=== PATIENT | female | born 1940 | race Caucasian/White ===

== ENCOUNTER 2021-01-06 21:16 | Emergency (ER) | payer OTHER, SELFPAY ==
--- NOTE | ~2021-01-06 | XR_ITS ---
EXAMINATION: XR foot LT min 3V EXAM DATE: 01/06/2021 21:57 INDICATION: Fall Today, Pain Throughout Foot Hx Strokes. TECHNIQUE: Left foot dorsoplantar, lateral and oblique projections obtained and reviewed. There is n o prior study for comparison. FINDINGS: Bones are osteopenic. There is acute closed posttraumatic minimally displaced fracture at t he neck of the left 2nd metatarsal bone. Mild polyarticular primary osteoarthritis. Small calcaneal s purs. There are arterial calcifications, arteriosclerosis. Probable old 5th metatarsal fracture. IMPRESSION: 1. Acute left 2nd metatarsal neck fracture. 2. Osteoarthritis and osteopenia. Reviewed, dictated and finalized at location A. CARDIAC CATH
--- NOTE | ~2021-01-06 | XR_ITS ---
EXAMINATION: XR wrist LT min 3V EXAM DATE: 01/06/2021 21:58 INDICATION: Left wrist pain. Injury, initial encounter. TECHNIQUE: Left wrist frontal, frontal with ulnar deviation, oblique and lateral projections obtained and reviewed. There is no prior study for comparison. FINDINGS: There is a radial styloid fracture which appears most likely chronic, however can't exclude superimposed acute closed posttraumatic nondisplaced fracture. Check for radial styloid probably ten derness. There is an old 5th metacarpal fracture. Bones are osteopenic. Carpal bones are unremarkable . IMPRESSION: 1. Left radial styloid chronic or acute on chronic fracture. 2. Chronic findings. Reviewed, dictated and finalized at location A. 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
[2021-01-06 21:26] VITALS: BP 180/51; PULSE 91; RESP 18; TEMP 36.3; O2SAT 99
[2021-01-06] MEDS: IBUPROFEN 600 MG TABLET PO (22:23)
--- NOTE | 2021-01-07 00:04 | ED.GENADULT ---
HPI - General Adult General Chief complaint: Fall Stated complaint: fall left hand left foot pain Time Seen by Provider: 01/06/21 21:38 History of Present Illness HPI narrative: Patient is a 80-year-old female who presents the emergency department chief complaint of left foot and left wrist pain. Patient reports she was walking hit a crack and fell. Patient denies striking her head denies loss of consciousness reports she has pain in the left wrist and reports left midfoot. Patient states pain is worse with movement and better with rest. Review of Systems Review of Systems: A 10 system review of systems was completed on the patient and is negative except for what is stated in the HPI. Nursing and ancillary documentation was reviewed. Exam Narrative: GENERAL: Well-appearing, well-nourished, and in no acute distress. HEAD: Normocephalic, atraumatic. EYES: PERRLA and EOMI. ENT: Nares clear, no rhinorrhea or epistaxis. Mucous membranes moist. NECK: Supple. CHEST: Clear to auscultation. No respiratory distress. HEART: Regular rate and rhythm. No murmur heard. Normal peripheral pulses. ABDOMEN: Soft, nontender, nondistended, normal active bowel sounds. EXTREMITIES: Normal range of motion. No edema. There is tenderness to palpation in the midfoot of the left foot at the second metatarsal. There is tenderness to palpation of the distal radius SKIN: Warm, dry, no rash. NEURO: No focal deficits. Alert and oriented x3. PSYCH: Normal mood and affect. Course Vital Signs Vital signs: Vital Signs Temperature 36.3 C L 01/06/21 21:26 Pulse Rate 91 01/06/21 21:26 Respiratory Rate 18 01/06/21 21:26 Blood Pressure 180/51 H 01/06/21 21:26 Pulse Oximetry 99 01/06/21 21:26 Temperature 36.3 C L 01/06/21 21:26 Pulse Rate 91 01/06/21 21:26 Respiratory Rate 18 01/06/21 21:26 Blood Pressure 180/51 H 01/06/21 21:26 Pulse Oximetry 99 01/06/21 21:26 Medical Decision Making Vital Signs Vital Signs: Vital Signs Temperature 36.3 C L 01/06/21 21:26 Pulse Rate 91 01/06/21 21:26 Respiratory Rate 18 01/06/21 21:26 Blood Pressure 180/51 H 01/06/21 21:26 Pulse Oximetry 99 01/06/21 21:26 Temperature 36.3 C L 01/06/21 21:26 Pulse Rate 91 01/06/21 21:26 Respiratory Rate 18 01/06/21 21:26 Blood Pressure 180/51 H 01/06/21 21:26 Pulse Oximetry 99 01/06/21 21:26 Discharge Plan Discharge Clinical Impression: Closed nondisplaced fracture of styloid process of left radius, Closed fracture of second metatarsal bone of left foot Patient Disposition: Home, Self-Care Condition: Stable Instructions: Antibiotic Form, Wrist Fracture in Adults (ED), Foot Fracture in Adults (ED), Splint Care (ED) Prescriptions: New hydrocodone-acetaminophen 5-325 mg tablet 1 tablet PO Q6H PRN (Reason: pain) 3 Days Qty: 12 RF: 0 Follow-up/Referrals: Fred Valdez MD [Physician] - Laureano Mcallister DO [Primary Care Provider] - Time of Disposition: 00:10
[2021-01-07 00:27] VITALS: BP 111/70; PULSE 81; RESP 20; O2SAT 100
== END 2021-01-07 00:29 | disposition home or self-care (01) ==
PROVIDERS: Emergency Provider Emergency Medicine; PCP Internal Medicine
DX: S52.515A Nondisplaced fracture of left radial styloid process, initial encounter for closed fracture (principal); S92.325A Nondisplaced fracture of second metatarsal bone, left foot, initial encounter for closed fracture; W01.0XXA Fall on same level from slipping, tripping and stumbling without subsequent striking against object, initial encounter
CPT/HCPCS: 73110; 73630; 99284; A9270

== ENCOUNTER 2022-09-15 00:59 | Day surgery (SDC) | payer OTHER, SELFPAY ==
--- NOTE | 2022-09-12 15:46 | PC.NURSE ---
Report to the Outpatient Waiting Room, entrance under the green pavilion located off [facility], at time __1100 on date _09/15/22 . Planned Procedure Time: __1200 . Time changes happen often and if your time is changed the preop area will call you the afternoon before. - You and your visitor will be asked to self-screen and do not enter if you have any COVID symptoms. - A mask is optional within the hospital at this time. LIGHT BREAKFAST - Children will be allowed to drink immediately following surgery. If applicable, please bring a bottle or sippy cup to assist with drinking. Juice, water, soda, and popsicles are readily available. For infants on formula, please bring formula the day of surgery. Pacifiers are allowed. Take the following medications with a SIP of water the morning of surgery: ALL ROUTINE MORNING MEDICATIONS DO NOT STOP ANY OF YOUR OTHER PRESCRIPTION MEDICATIONS PRIOR TO SURGERY ?EXCEPT THE FOLLOWING Medications to discontinue per physician NONE Date to take last dose Please no make-up, nail mont[place]gr[place], hairspray, perfume, deodorant, or body powder the day of surgery. No jewelry (including any body piercings) or valuables the day of surgery, leave them at home. Please take a shower or bath the night before, or the morning of, surgery with an antibacterial soap. Wear comfortable, loose fitting clothing. Children are encouraged to wear pajamas. - Jewelry must be removed prior to entering the operating room. Rings and piercings that are not removed may be cut off. - The hospital will not accept responsibility for valuables. - Please leave all valuables, including medications, at home the day of surger YOU MAY DRIVE YOURSELF HOME Follow any additional instructions given to you from your surgeon. If you or anyone in your household have experienced Covid symptoms in the past week, please notify your surgeon or the nurse liaison at the phone number below for possible testing. Telephone instructions given to _PATIENT AND SON YOSSI and asked if any additional questions and then verbalized understanding. Patient advised to call surgeon office or pre surgery nurse liaison [phone] if any additional questions.
[2022-09-15] VITALS (14 sets, daily range): BP systolic 127–176; BP diastolic 57–86; PULSE 75–89; RESP 16–20; TEMP 36.1; O2SAT 94–100; BMI 24.1
--- NOTE | 2022-09-15 08:32 | WPDHPUPDATE1 ---
History and Physical Update Update Date/Time: 09/15/22 08:32 History and Physical has been reviewed, including an updated exam of the patient. There are NO changes in the patient's condition. Risks, benefits, and alternatives have been discussed and questions answered. Patient agrees to proceed with procedure.
[2022-09-15] MEDS: LIDO 1%/EPINEPHRINE 1:100,000 20 ML VIAL 15 ML INFILTRATE (12:26)
--- NOTE | 2022-09-15 12:56 | W.PM.PROC2 ---
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 She was taken to the operating room placed supine on the operating table. A time-out was held and confirmed. The face was prepped and draped in usual fashion. She was comfortably situated. The area was carefully marked for the incision and the area fairly widely anesthetized with 1% lidocaine with epinephrine to include the nose and the left upper lip and left cheek. The specimen was taken with a 15. Blade through full-thickness of skin extending more deeply in the nasal labial fold region. The most superior aspect along the upper nasal labial groove was marked with a suture for 12 o'clock. The specimen was sent to pathology. The pathologist revealed that this was an infiltrating nodular basal cell carcinoma and he found the margins were free. He thought that the deep margin on the 12:00 o'clock aspect was closest to the margin. We undertook elevation of additional tissue from that area using a 15 blade to lift a 1 mm thick piece of fascia, muscle and fat. The subcutaneous tissue was identified and from the musculature and elevated off the deeper fascia. This covered approximately 50% of the base extending from roughly the midline the to the 9:00 a.m. half of the base. This piece of tissue was sent for permanent section but was marked on its superficial surface with black ink. Estimated Blood Loss 10 Drains No Packing No Pathology Yes Complications No immediate complications Condition Stable Disposition Same day
--- NOTE | 2022-09-15 13:08 | SUR.PHASEII ---
1300 - pt's incision site bleeding. dr. weiss aware. pt resting in charge, holding pressure and instructed by dr. weiss. son in room with pt
== END 2022-09-15 13:45 | disposition home or self-care (01) ==
PROVIDERS: Visit Provider Plastic Surgery
PROC: (CPT 14060; principal; 2022-09-15 10:30)
DX: C44.311 Basal cell carcinoma of skin of nose (principal); J45.909 Unspecified asthma, uncomplicated; Z79.82 Long term (current) use of aspirin; Z79.02 Long term (current) use of antithrombotics/antiplatelets; Z86.73 Personal history of transient ischemic attack (TIA), and cerebral infarction without residual deficits
CPT/HCPCS: 14060; 88304; 88305; 88331; A9270

== ENCOUNTER 2023-06-18 12:06 | Inpatient (IN) | payer OTHER, SELFPAY ==
[2023-06-18] VITALS (9 sets, daily range): BP systolic 100–144; BP diastolic 49–65; PULSE 80–99; RESP 16–22; TEMP 35.6–36.6; O2SAT 93–100; BMI 24.7
--- NOTE | ~2023-06-18 | XR_ITS ---
EXAMINATION: XR chest 1V portable DATE: 06/18/2023 14:13 INDICATION: Fall. TECHNIQUE: A single frontal view of the chest was obtained. COMPARISON: Chest 2 views 11/12/2018 FINDINGS: There is mild atelectasis in the lower lung zones. No pleural effusion or pneumothorax. The heart size is normal. There are old healed bilateral rib fractures. IMPRESSION: 1. Mild atelectasis in the lower lung zones. Reviewed, dictated and finalized at location E.
--- NOTE | ~2023-06-18 | CT_ITS ---
EXAMINATION: CT brain wo con DATE: 06/18/2023 14:51 INDICATION: Fall. TECHNIQUE: Computed tomography (CT) of the head was performed without intravenous contrast. The mA wa s adjusted according to patient size. Iterative reconstruction technique was employed. The dose-lengt h product was 605.33 mGy-cm. COMPARISON: None FINDINGS: There is an old infarct involving the right basal ganglia, posterior limb right internal ca psule, and right posterior velazquez radiata. There is no intracranial hemorrhage, acute infarction, or abnormal intracranial mass lesion. The ventricles are normal in size. The mastoid air cells are galo l. The paranasal sinuses are clear. There are likely changes of ocular lens replacement surgeries. IMPRESSION: 1. Old infarct involving the right basal ganglia, posterior limb right internal capsule, and right po sterior velazquez radiata. Reviewed, dictated and finalized at location E. IMPRESSION: 1. Old infarct involving the right basal ganglia, posterior limb right internal capsule, and right posterior velazquez radiata.
--- NOTE | ~2023-06-18 | XR_ITS ---
XR pelvis 1-2V 06/18/2023 12:58 Indication: Pelvic pain after fall Procedure: AP pelvis Comparison: No prior studies for comparison. Findings: There are mildly displaced fractures of the left superior and inferior pubic rami. Osteopen ia. There is osteoarthritis of the hips. There is lower lumbar spondylosis. There is discontinuity of the right inferior sacral foramen. Cannot exclude sacral fracture. Impression: 1: Mildly displaced left superior and inferior pubic rami fractures. 2: Possible right sacral fracture. Consider correlation with MRI. Reviewed, dictated and finalized at location A. Impression: 1: Mildly displaced left superior and inferior pubic rami fractures. 2: Possible right sacral fracture. Consider correlation with MRI.
[2023-06-18 13:40] LABS: Basophils Absolute Auto 0.1 K/mm3 (0.0-0.1); Basophils Percent Auto 0.5 % (0.2-1.2); Eosinophils Absolute Auto 0.1 K/mm3 (0-0.3); Eosinophils Percent Auto 0.6 % (0-4.4); Hematocrit 39.3 % (37.0-47.0); Hemoglobin 12.3 g/dL (12.0-15.0); Immature Granulocyte Percent A 0.7 % (0-0.5); Lymphocytes Absolute Auto 1.17 K/mm3 (0.9-3.2); Lymphocytes Percent Auto 7.8 % (18.3-44.2); Mean Corpuscular HGB Conc 31.3 g/dl (32-36); Mean Corpuscular Hemoglobin 30.3 pg (26-34); Mean Corpuscular Volume 96.8 fl (80-100); Monocytes Absolute Auto 0.9 K/mm3 (0.1-0.6); Neutrophils Absolute Auto 12.7 K/mm3 (1.3-6.7); Neutrophils Percent Auto 84.4 % (45.5-73.1); Platelet Count Result 243 k/mm3 (150-375); Red Blood Count 4.06 M/mm3 (4.2-5.4); Red Cell Distribution Width 14.3 % (11.5-14.5); White Blood Count 15.1 K/mm3 (4.5-10.0)
[2023-06-18] MEDS: HYDROcodone/acetaminophen (*CRX) 5-325 MG TABLET 1 TAB PO (13:45)
[2023-06-18 13:56] LABS: Anion Gap 6 mmol/L (4-12); Blood Urea Nitrogen 26 mg/dL (7-17); Calcium 9.1 mg/dL (8.4-10.2); Carbon Dioxide 28 mmol/L (22-30); Chloride 107 mmol/L (98-107); Estimated Glomerular Filt Rate > 60; Glucose 201 mg/dL (65-110); Sodium 141 mmol/L (137-145)
--- NOTE | 2023-06-18 14:00 | ECG_ITS ---
SEE SCANNED COPY FOR CONFIRMED REPORT MTDD
[2023-06-18 14:31] LABS: Troponin I < 0.012 ng/mL (0.000-0.034)
--- NOTE | 2023-06-18 14:57 | ED.FALL ---
HPI - Fall General Chief Complaint: Fall Stated Complaint: fall Time Seen by Provider: 06/18/23 12:47 History of Present Illness HPI Narrative: Patient presents here after head she fell, she states she has been feeling stopped up because she ran out her Flonase at home and because of this her head feels cloudy, she landed on her bottom and now has pain to her left bottom a, so much so she is unable to stand up without severe pain. No focal numbness or weakness. Did nothit her head. she does have some discomfort to the right shoulder. Related Data Home Medications Medication Instructions Recorded Confirmed aspirin 81 mg chewable tablet 81 mg PO HS 08/23/19 06/18/23 clopidogrel 75 mg tablet 75 mg PO HS 06/18/23 06/18/23 hydrocodone 5 mg-acetaminophen 325 1 tablet PO Q6H PRN Pain 06/18/23 06/18/23 mg tablet pravastatin 40 mg tablet 40 mg PO DAILY 06/18/23 06/18/23 Allergies Allergy/AdvReac Type Severity Reaction Status Date / Time No Known Allergies Allergy Verified 06/18/23 13:05 Review of Systems Review of Systems: All systems reviewed & are unremarkable except as noted in HPI and below PMFSH Family History Family History Father Family history of cardiovascular disease Mother Family history of lung cancer Social History Social History Smoking packs per day: 0.5 Smoking cigarettes per day: 10.0 Years smoked: 20 Smoking pack-years: 10.00 Smoking status: Former smoker Tobacco type: cigarettes Second hand tobacco smoke exposure: Yes Smoking end date: 02/28/84 Alcohol intake: never Drinks per week: 2 Substance use: never Substance use type: does not use Do You Feel Safe in your Home?: Yes Lack of Transportation: No Lack of Food: Never True Current Housing: I Have Housing Concerned About Future Housing: No Difficulty Paying Gas/Electric Bills: No Difficulty Paying for Meds: No Currently Unemployed: No Education: Decline to Answer Difficulty w/ Childcare or Family Care: No Living arrangements: with family Spiritual care concerns: No Exam Narrative: EXAMINATION OF ORGAN SYSTEMS/BODY AREAS: Constitutional: Vital signs per nursing GENERAL: Appears uncomfortable in bed HEAD: Normal with no signs of head trauma. EYES: EOMI, conjunctiva normal ENT: Hearing grossly intact LUNGS: Nonlabored breathing. HEART: [Regular rate and rhythm] ABD: [Soft], [nontender to palpation] EXT: tenderness to left hip/ pelvis, multiple bruises bilateral arms, bruising to right scapula SKIN: bruising as per above NEURO: [Alert and oriented x 3. No gross focal sensory or strength deficits.] PSYCH: Normal affect Course Vital Signs Vital signs: Vital Signs Temperature 97.8 F 06/18/23 12:17 Pulse Rate 99 06/18/23 12:17 Respiratory Rate 18 06/18/23 12:17 Blood Pressure 121/60 06/18/23 12:17 Pulse Oximetry 95 06/18/23 12:17 Oxygen Delivery Room Air 06/18/23 12:17 Temperature 96.1 F L 06/18/23 16:52 Pulse Rate 86 06/18/23 16:52 Respiratory Rate 16 06/18/23 16:52 Blood Pressure 118/61 06/18/23 16:52 Pulse Oximetry 98 06/18/23 17:17 Oxygen Delivery Room Air 06/18/23 17:17 MDM - Fall MDM Narrative Medical decision making narrative: 1) Differential diagnosis: fractures, cardiac syncope, intracranial abnormality 2) Comorbidities: CAD, hypertension 3) External notes reviewed: PCP notes 4) History sources independently obtained from: children at bedside 5) Discussion of management with: Orthopedics, hospitalist 6) Independent interpretation of: pelvis x-ray: left-sided pubic rami fracture EKG 1421 on my independent interpretation showing normal sinus rhythm, left axis deviation, AL interval 183, QRS 84, QTC 403, no ST elevations or depressions concerning for acute ischemia. chest x-ray, no
--- NOTE | 2023-06-18 16:40 | ADMGEN ---
This patient, Jeremias Perla, was admitted to [facility] Surg Room 324-01. Patient/family oriented to hospital policies and general routines including ID bracelet, bed and alarms, visiting hours, pain management, procedures, bathroom and other care routines, personal items, smoking policy, room service/diet, and visiting hours. Information on how to activate the Rapid Response Team has been discussed. Patient/Family are encouraged to report perceived risks to care and to ask questions if they do not understand what they are told or what they should do.
--- NOTE | 2023-06-18 20:25 | PM.IMHP ---
H&P: HPI History of Present Illness Date/Time: 06/18/23 23:52 Chief Complaint: Fall Narrative: 82 y/o F presents here with left buttock and right shoulder pain s/p fall with PMH of asthma, HLD, CVA (residual left hemiplegia), HTN, and basal cell carcinoma (left nare, s/p excision). Surgical history - pilonidal cyst removal, cataract removal. Patient presents here for further evaluation of left-sided buttock pain and right shoulder pain post mechanical ground level fall. Patient reports recent congestion and ear fullness bilaterally, has been taking Flonase. Patient reports that she was walking in the kitchen when her foot turned under and she fell. Reports no LOC, and no head strike. Patient landed on her bottom, immediately had pain to her left buttock, some pain to her right shoulder, and unable to ambulate due to severity of pain. Denies any new lower extremity numbness or weakness. Does have history of residual left hemiplegia and nerve pain to her LUE/LLE/L face secondary to a CVA, currently uses a cane. Currently lives at home, youngest son recently moved in with her and has been helping her occasionally. No difficulty with urination. Initial VS at presentation: 97.8? F, HR 99, RR 18, 121/60, and 95% on RA. ED workup showed: WBC 15.1, no anemia, creatinine 0.8 and GFR >60, glucose 201, initial troponin negative. Head CT showed old infarct involving the right basal ganglia, posterior limb right internal capsule, and right posterior coronal radiata. CXR showed mild atelectasis in the lower lung zones. Pelvic XR showed a mildly displaced left superior and inferior pubic rami fractures. Possible right sacral fracture. 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 History of completed stroke (01/2011) Hx of skin cancer, basal cell L nare, s/p excision Left hemiplegia s/p CVA Mixed hyperlipidemia Rhinitis, chronic Surgical History Surgical History History of bilateral cataract extraction History of surgical removal of pilonidal cyst Family History Family History Father Family history of cardiovascular disease Mother Family history of lung cancer Social History Social History Smoking packs per day: 0.5 Smoking cigarettes per day: 10.0 Years smoked: 20 Smoking pack-years: 10.00 Smoking status: Former smoker Tobacco type: cigarettes Second hand tobacco smoke exposure: Yes Smoking end date: 02/28/84 Alcohol intake: never Drinks per week: 2 Substance use: never Substance use type: does not use Do You Feel Safe in your Home?: Yes Lack of Transportation: No Lack of Food: Never True Current Housing: I Have Housing Concerned About Future Housing: No Difficulty Paying Gas/Electric Bills: No Difficulty Paying for Meds: No Currently Unemployed: No Education: Decline to Answer Difficulty w/ Childcare or Family Care: No Living arrangements: with family Spiritual care concerns: No Meds Home Medications and Allergies Home Medications Medication Instructions Recorded Confirmed Type aspirin 81 mg chewable tablet 81 mg PO HS 08/23/19 06/18/23 History lisinopril 20 mg tablet 20 mg PO DAILY #90 tabs 02/01/23 06/18/23 Rx clopidogrel 75 mg tablet 75 mg PO HS 06/18/23 06/18/23 History hydrocodone 5 mg-acetaminophen 325 1 tablet PO Q6H PRN Pain 06/18/23 06/18/23 History mg tablet pravastatin 40 mg tablet 40 mg PO DAILY 06/18/23 06/18/23 History Allergies Allergy/AdvReac Type Severity Reaction Status Date / Time No Known
[2023-06-18] MEDS: oxyCODONE HCL (*CRX) 2.5 MG TAB IR PO (20:52)
[2023-06-18] MEDS: CLOPIDOGREL BISULFATE 75 MG TABLET PO (20:52)
[2023-06-18] MEDS: ASPIRIN 81 MG CHEWABLE TABLET PO (20:53)
[2023-06-18] MEDS: LACTATED RINGERS 1,000 ML 75 ML IV CONT (20:56)
[2023-06-19 05:02] VITALS: BP 123/51; PULSE 93; RESP 17; TEMP 36.4; O2SAT 97
[2023-06-19 06:14] LABS: Basophils Percent Auto 0.4 % (0.2-1.2); Hematocrit 31.1 % (37.0-47.0); Hemoglobin 9.8 g/dL (12.0-15.0); Immature Granulocyte Absolute 0.04 K/mm3 (0.00-0.031); Immature Granulocyte Percent A 0.5 % (0-0.5); Lymphocytes Absolute Auto 1.16 K/mm3 (0.9-3.2); Lymphocytes Percent Auto 15.4 % (18.3-44.2); Mean Corpuscular HGB Conc 31.5 g/dl (32-36); Mean Corpuscular Hemoglobin 30.1 pg (26-34); Mean Corpuscular Volume 95.4 fl (80-100); Mean Platelet Volume 10.4 fl (7.4-10.4); Monocytes Absolute Auto 0.8 K/mm3 (0.1-0.6); Monocytes Percent Auto 10.1 % (2.6-8.5); Neutrophils Absolute Auto 5.5 K/mm3 (1.3-6.7); Neutrophils Percent Auto 73.6 % (45.5-73.1); Platelet Count Result 159 k/mm3 (150-375); Red Blood Count 3.26 M/mm3 (4.2-5.4); Red Cell Distribution Width 14.3 % (11.5-14.5); White Blood Count 7.5 K/mm3 (4.5-10.0)
[2023-06-19 06:25] LABS: Anion Gap 3 mmol/L (4-12); Blood Urea Nitrogen 29 mg/dL (7-17); Calcium 8.6 mg/dL (8.4-10.2); Carbon Dioxide 28 mmol/L (22-30); Chloride 106 mmol/L (98-107); Estimated CRCL calculation 45 ml/min; Estimated Glomerular Filt Rate > 60; Glucose 105 mg/dL (65-110); Potassium 4.4 mmol/L (3.4-5.0); Sodium 137 mmol/L (137-145)
[2023-06-19 08:00] VITALS: PULSE 93; RESP 17; O2SAT 97
--- NOTE | 2023-06-19 09:06 | PM.CNOR ---
Assessment and Plan Assessment and plan (1) Closed fracture of pubic ramus: Code(s): S32.599A - Other specified fracture of unspecified pubis, initial encounter for closed fracture <CELESTE Gomez - Last Filed: 06/19/23 15:09> Status: Acute <CELESTE Gomez - Last Filed: 06/19/23 15:09> Assessment and Plan: Mildly displaced superior and inferior left pubic rami fracture. Possible sacral fracture. Patient may be treated conservatively. I recommend she be discharged to SNF/Rehab. 6-8 weeks for initial healing. Weight bearing as tolerated with a walker. May begin PT/OT. She will need to follow up in the office in 4-6 weeks with xrays. <CELESTE Gomez - Last Filed: 06/19/23 15:09> Assessment and Plan: Patient seen and examined. Discussed above care plan. Radiographic images reviewed personally. Three-dimensional imaging not required. Agree with conservative care plan. No pain with pelvic compression. She may weight bear as tolerated. Anticipate early difficulty with weight-bearing which should improve weekly. She may be able to [facility] sooner than 6 weeks. <Geovany Solorzano MD - Last Filed: 06/19/23 16:54> History of Present Illness HPI Consult date: 06/19/23 <CELESTE Gomez - Last Filed: 06/19/23 15:09> 06/19/23 <Geovany Solorzano MD - Last Filed: 06/19/23 16:54> Chief complaint: Fall with Pelvis FX <CELESTE Gomez - Last Filed: 06/19/23 15:09> Narrative: Patient fell from standing height. She does not know how she fell. Pain in her lower back. No other complaints. No numbness or tingling or other associated symptoms. <CELESTE Gomez - Last Filed: 06/19/23 15:09> Review of Systems Review of Systems: History of stroke affecting the left side. 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 History of completed stroke (01/2011) Hx of skin cancer, basal cell L nare, s/p excision Left hemiplegia s/p CVA Mixed hyperlipidemia Rhinitis, chronic <CELESTE Gomez - Last Filed: 06/19/23 15:09> Surgical History Surgical History: Surgical History History of bilateral cataract extraction History of surgical removal of pilonidal cyst <CELESTE Gomez - Last Filed: 06/19/23 15:09> Family History Family History: Family History Father Family history of cardiovascular disease Mother Family history of lung cancer <CELESTE Gomez - Last Filed: 06/19/23 15:09> Social History Social History: Social History Smoking packs per day: 0.5 Smoking cigarettes per day: 10.0 Years smoked: 20 Smoking pack-years: 10.00 Smoking status: Former smoker Tobacco type: cigarettes Second hand tobacco smoke exposure: Yes Smoking end date: 02/28/84 Alcohol intake: never Drinks per week: 2 Substance use: never Substance use type: does not use Do You Feel Safe in your Home?: Yes Lack of Transportation: No Lack of Food: Never True Current Housing: I Have Housing Concerned About Future Housing: No Difficulty Paying Gas/Electric Bills: No Difficulty Paying for Meds: No Currently Unemployed: No Education: Decline to Answer Difficulty w/ Childcare or Family Care: No Living arrangements: with family Spiritual care concerns: No <CELESTE Gomez - Last Filed: 06/19/23 1
[2023-06-19] MEDS: PRAVASTATIN SODIUM 20 MG TABLET 40 MG PO (09:16)
[2023-06-19] MEDS: lisinopriL 20 MG TABLET PO (09:18)
[2023-06-19] MEDS: PSYLLIUM POWDER PACKET 1 PACKET PO (09:18)
--- NOTE | 2023-06-19 09:29 | PM.IMPN ---
Progress Note: A&P Assessment and Plan (1) Closed fracture of pubic ramus: Code(s): S32.599A - Other specified fracture of unspecified pubis, initial encounter for closed fracture Status: Acute Assessment and Plan: 06/18/23: - XR pelvis 1: Mildly displaced left superior and inferior pubic rami fractures. 2:?Possible right sacral fracture. Consider correlation with MRI. - ortho consulted, awaiting formal recs. case discussed with ED provider, reported case was likely non-operative and would like patient admitted for PT/OT - SCDs - resume diet and continuing daily ASA and Plavix, no immediate surgical intervention indicated - pain management: Tyl Q6H, morphine 2 mg, oxycodone 2.5 mg - zofran PRN for nausea - monitor labs in AM - CBC and BMP - adding UA given mild elevation in WBC - bowel regimen: docusate/senna prn and Metamucil daily - maintenance fluids: LR 75 mL/hr x1L 06/19/23: Continue pain control Continue PT and OT Orthopedic evaluation ordered (2) Essential (primary) hypertension: Code(s): I10 - Essential (primary) hypertension Status: Acute Assessment and Plan: 06/18/23: - chronic, currently 144/65 - continue home medications: Lisinopril 20 mg daily - monitor 06/19/23: Blood pressures ranging 123/51 to 144/65 No change to current treatment plan Time Spent With Patient Time with patient: Greater than 35 minutes Subjective Date/time seen: 06/19/23 09:29 Interval history: This is an 82-year-old female who presented to the hospital on 06/18/2023 for evaluation after fall. 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 Pelvic x-ray showed a mildly displaced left superior and inferior pubic rami fracture and possible right sacral fracture. Initial labs showed a white blood cell count of 15.1 troponins negative, otherwise unremarkable. Ortho consulted. Patient is likely not a surgical candidate and will be treated medically. She will need PT and OT. On examination today patient is alert and oriented x3, lying in the bed. Patient endorses bilateral hip and low back pain. Patient denies any fever, chills, nausea, vomiting, diarrhea, abdominal pain chest pain, shortness a breath. Labs today reveal hemoglobin of 9.8 otherwise unremarkable. PT and OT will evaluate patient today. Continue to work on pain control. Case management working on outpatient rehab needs. Review of Systems Review of Systems: All systems reviewed & are unremarkable except as noted in HPI and below Constitutional: Constitutional: Reports as per HPI and Reports no additional constitutional complaints Eyes: Eyes: Reports as per HPI and Reports no additional eye complaints ENT: Reports system reviewed and no additional complaints, except as documented and Reports as per HPI Cardiovascular: Cardiovascular: Reports as per HPI and Reports no additional cardiovascular complaints Respiratory: Respiratory: Reports as per HPI and Reports no additional respiratory complaints Gastrointestinal: Gastrointestinal: Reports as per HPI and Reports no additional gastrointestinal complaints Genitourinary: Genitourinary: Reports no additional female genitourinary complaints and Reports as per HPI Musculoskeletal: Musculoskeletal: Reports no additional musculoskeletal complaints and Reports as per HPI Integumentary/Breasts: Skin/Breast: Reports system reviewed and no additional complaints, except as docu and Reports as per HPI Neurologic: Reports system reviewed and no additional complaints, except as documented and Reports as per HPI Psychiatric: Psychiatric: Reports no additional psychiatric complaints and Reports as per HPI Exam Narrative: General: In no acute distress, well nourished Head: atraumatic, no encephalopathy
--- NOTE | 2023-06-19 13:05 | PCPTNOTE ---
Attempted PT evaluation, waiting on ortho consult/weight bearing recommendations prior to PT evaluation. RN aware. Will follow.
[2023-06-19 14:00] VITALS: BP 111/60; PULSE 96; RESP 20; TEMP 36.5; O2SAT 100
[2023-06-19] MEDS: ACETAMINOPHEN 325 MG TABLET 650 MG PO (16:05)
[2023-06-19 20:03] VITALS: BP 159/67; PULSE 100; RESP 18; TEMP 36.1; O2SAT 96
[2023-06-19] MEDS: CLOPIDOGREL BISULFATE 75 MG TABLET PO (20:23)
[2023-06-19] MEDS: FLUTICASONE PROPIONATE 0.05% NA SPR 16 GM BTL (*BKC) 1 SPRAY NASAL (20:23)
[2023-06-19] MEDS: ASPIRIN 81 MG CHEWABLE TABLET PO (20:23)
[2023-06-19] MEDS: oxyCODONE HCL (*CRX) 2.5 MG TAB IR PO (20:32)
[2023-06-20] MEDS: ACETAMINOPHEN 325 MG TABLET 650 MG PO ×2 (02:49→20:13)
[2023-06-20 05:38] VITALS: BP 137/57; PULSE 96; RESP 17; TEMP 36.6; O2SAT 95
[2023-06-20 08:00] VITALS: PULSE 86; RESP 20; O2SAT 96
[2023-06-20] MEDS: FLUTICASONE PROPIONATE 0.05% NA SPR 16 GM BTL (*BKC) 1 SPRAY NASAL ×2 (09:07→20:14)
[2023-06-20] MEDS: PRAVASTATIN SODIUM 20 MG TABLET 40 MG PO (09:07)
[2023-06-20] MEDS: lisinopriL 20 MG TABLET PO (09:07)
[2023-06-20] MEDS: PSYLLIUM POWDER PACKET 1 PACKET PO (09:09)
--- NOTE | 2023-06-20 10:20 | PM.PNORT ---
Progress Note: A&P Assessment and Plan (1) Closed fracture of pubic ramus: Code(s): S32.599A - Other specified fracture of unspecified pubis, initial encounter for closed fracture Status: Acute Assessment and Plan: No changes in care plan. ?Mildly displaced superior and inferior left pubic rami fracture. Also sacral fracture. Patient may be treated conservatively. I recommend she be discharged to SNF/Rehab. 6-8 weeks for initial healing. Weight bearing as tolerated with a walker. Anticipate early difficulty with weight-bearing which should improve weekly. May begin PT/OT. She will need to follow up in the office in 4-6 weeks with xrays.?No pain with pelvic compression.? Subjective Subjective Date/Time Seen: 06/20/23 10:20 Interval history: Patient working with therapy at the time of my visit. Patient having pain with any ambulation. Also complains of issues with her legs due to her previous stroke. No new symptoms. No other complaints. Patient was not wanting to talk at the time of my visit. Review of Systems Review of Systems: All systems reviewed & are unremarkable except as noted in HPI and below Exam Narrative: Patient is alert and oriented x4. Resting comfortably in bed. No acute distress. No erythema or ecchymosis. No rashes or lesions noted. Warm, normal appearing skin. Tenderness at the pelvis and lumbar spine. Calf nontender. Distal pulses palpable. Normal capillary refill. Patient able to move and wiggle toes. Light touch sensation intact. No pain with pelvic compression. Objective Data Vital Signs Vital Signs: Vital Signs - 24 hr 06/19/23 14:00 06/19/23 20:03 06/19/23 20:00 Temperature 97.7 F 97.0 F L Pulse Rate 96 100 Respiratory Rate 20 18 Blood Pressure 111/60 159/67 H Pulse Oximetry 100 96 Oxygen Delivery Room Air 06/20/23 05:38 06/20/23 09:17 Temperature 97.9 F Pulse Rate 96 Respiratory Rate 17 Blood Pressure 137/57 L Pulse Oximetry 95 Oxygen Delivery Room Air Intake/Output Intake/Output: Intake & Output 06/17/23 06/18/23 06/19/23 06/20/23 23:59 23:59 23:59 23:59 Intake Total 0 1198 240 Output Total 490 300 Balance 0 708 -60 Meds/Results Medications: Active Medications Generic Name Dose Route Start Last Admin Trade Name Freq PRN Reason Stop Dose Admin Acetaminophen 650 mg 06/18/23 20:30 06/20/23 02:49 Acetaminophen 325 Mg Tablet PO 650 mg Q6H PRN Administration Mild Pain (1-3) or Fever Aspirin 81 mg 06/18/23 21:00 06/19/23 20:23 Aspirin 81 Mg Chewable Tablet PO 81 mg HS FREDY Administration Clopidogrel Bisulfate 75 mg 06/18/23 21:00 06/19/23 20:23 Clopidogrel Bisulfate 75 Mg Tablet PO 75 mg HS FREDY Administration Fluticasone Propionate 1 spray 06/19/23 21:00 06/20/23 09:07 Fluticasone Propionate 0.05% Na Spr 16 Gm Btl (*Bkc) NASAL 1 spray Q12HR FREDY Administration Lisinopril 20 mg 06/19/23 09:00 06/20/23 09:07 Lisinopril 20 Mg Tablet PO 20 mg DAILY FREDY Administration Morphine Sulfate 2 mg 06/18/23 20:30 Morphine Sulfate (*Crx) 2 Mg/Ml Inj IV PUSH Q4H PRN Pain Rated 7-10 Ondansetron HCl 4 mg 06/18/23 20:57 Ondansetron Inj 4 Mg/2 Ml Vial IV PUSH Q6H PRN Nausea And Vomiting Oxycodone HCl 2.5 mg 06/18/23 20:30 06/19/23 20:32 Oxycodone Hcl (*Crx) 2.5 Mg Tab Ir PO 2.5 mg Q4H PRN Administration Pain Rated 4-6 Pravastatin Sodium 40 mg 06/19/23 09:00 06/20/23 09:07 Pravastatin Sodium 20 Mg Tablet PO 40 mg DAILY FREDY Administration Psyllium Hydrophilic Mucilloid 1 packet 06/19/23 09:00 06/20/23 09:09 Psyllium Powder Packet PO 1 packet QAM FREDY Administration Senna/Docusate Sodium 1 tab 06/18/23 20:31 Senna/Docusate Sodium Tablet PO HS PRN Constipation Radiology Results: ITS Impressions Pelvis X-Ray 06/18/23 13:01 Impression: 1: Mildly displaced left superior and inferior
[2023-06-20 11:26] LABS: Basophils Absolute Auto 0.1 K/mm3 (0.0-0.1); Basophils Percent Auto 0.8 % (0.2-1.2); Eosinophils Absolute Auto 0.1 K/mm3 (0-0.3); Eosinophils Percent Auto 0.6 % (0-4.4); Hematocrit 29.4 % (37.0-47.0); Hemoglobin 9.4 g/dL (12.0-15.0); Immature Granulocyte Absolute 0.04 K/mm3 (0.00-0.031); Immature Granulocyte Percent A 0.4 % (0-0.5); Lymphocytes Absolute Auto 0.72 K/mm3 (0.9-3.2); Lymphocytes Percent Auto 7.8 % (18.3-44.2); Mean Corpuscular Hemoglobin 31.2 pg (26-34); Mean Corpuscular Volume 97.7 fl (80-100); Mean Platelet Volume 10.7 fl (7.4-10.4); Monocytes Absolute Auto 0.9 K/mm3 (0.1-0.6); Monocytes Percent Auto 9.4 % (2.6-8.5); Neutrophils Absolute Auto 7.5 K/mm3 (1.3-6.7); Platelet Count Result 176 k/mm3 (150-375); Red Blood Count 3.01 M/mm3 (4.2-5.4); Red Cell Distribution Width 14.6 % (11.5-14.5); White Blood Count 9.2 K/mm3 (4.5-10.0)
[2023-06-20 12:14] LABS: Alanine Aminotransferase 17 U/L (6-35); Albumin Level 3.4 g/dL (3.5-5.1); Alkaline Phosphatase 57 U/L (38-126); Anion Gap 7 mmol/L (4-12); Aspartate Amino Transferase 26 U/L (14-36); Bilirubin,Total 0.7 mg/dL (0.2-1.3); Blood Urea Nitrogen 26 mg/dL (7-17); Calcium 8.7 mg/dL (8.4-10.2); Carbon Dioxide 24 mmol/L (22-30); Chloride 104 mmol/L (98-107); Estimated CRCL calculation 40 ml/min; Estimated Glomerular Filt Rate > 60; Glucose 181 mg/dL (65-110); Potassium 4.6 mmol/L (3.4-5.0); Sodium 135 mmol/L (137-145)
--- NOTE | 2023-06-20 12:46 | PM.IMPN ---
Progress Note: A&P Assessment and Plan (1) Closed fracture of pubic ramus: Code(s): S32.599A - Other specified fracture of unspecified pubis, initial encounter for closed fracture Status: Acute Assessment and Plan: 06/18/23: - XR pelvis 1: Mildly displaced left superior and inferior pubic rami fractures. 2:?Possible right sacral fracture. Consider correlation with MRI. - ortho consulted, awaiting formal recs. case discussed with ED provider, reported case was likely non-operative and would like patient admitted for PT/OT - SCDs - resume diet and continuing daily ASA and Plavix, no immediate surgical intervention indicated - pain management: Tyl Q6H, morphine 2 mg, oxycodone 2.5 mg - zofran PRN for nausea - monitor labs in AM - CBC and BMP - adding UA given mild elevation in WBC - bowel regimen: docusate/senna prn and Metamucil daily - maintenance fluids: LR 75 mL/hr x1L 06/19/23: Continue pain control Continue PT and OT Orthopedic evaluation ordered 06/20/23: Continue with pain control Continue PT OT Case management working on SNF placement and authorization (2) Essential (primary) hypertension: Code(s): I10 - Essential (primary) hypertension Status: Acute Assessment and Plan: 06/18/23: - chronic, currently 144/65 - continue home medications: Lisinopril 20 mg daily - monitor 06/19/23: Blood pressures ranging 123/51 to 144/65 No change to current treatment plan 06/20/23: Blood pressure ranging 111/60 to 159/67 No change to current treatment plan (3) Anemia: Code(s): D64.9 - Anemia, unspecified Status: Acute Assessment and Plan: 06/20/2023: Hemoglobin 9.4 Will check Ferritin, Iron, TIBC, and Vitamin B 12 Started Ferrous sulfate oral Time Spent With Patient Time with patient: 25 - 35 minutes Subjective Date/time seen: 06/20/23 12:46 Interval history: 06/19/23: This is an 82-year-old female who presented to the hospital on 06/18/2023 for evaluation after fall. 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 Pelvic x-ray showed a mildly displaced left superior and inferior pubic rami fracture and possible right sacral fracture. Initial labs showed a white blood cell count of 15.1 troponins negative, otherwise unremarkable. Ortho consulted. Patient is likely not a surgical candidate and will be treated medically. She will need PT and OT. On examination today patient is alert and oriented x3, lying in the bed. Patient endorses bilateral hip and low back pain. Patient denies any fever, chills, nausea, vomiting, diarrhea, abdominal pain chest pain, shortness a breath. Labs today reveal hemoglobin of 9.8 otherwise unremarkable. PT and OT will evaluate patient today. Continue to work on pain control. Case management working on outpatient rehab needs. 06/20/23: Patient denies any new complaints today. She states that her pain is well controlled. Labs today show hemoglobin of 9.4 sodium is 135, blood sugars ranging 105-181 liver enzymes are normal. Case coordination working on outpatient SNF placement. She will continue with PT and OT here. Review of Systems Review of Systems: All systems reviewed & are unremarkable except as noted in HPI and below Constitutional: Constitutional: Reports as per HPI and Reports no additional constitutional complaints Eyes: Eyes: Reports as per HPI and Reports no additional eye complaints ENT: Reports system reviewed and no additional complaints, except as documented and Reports as per HPI Cardiovascular: Cardiovascular: Reports as per HPI and Reports no additional cardiovascular complaints Respiratory: Respiratory: Reports as per HPI and Reports no additional respiratory complaints Gastrointestinal: Gastrointestinal: Rep
[2023-06-20 14:00] VITALS: BP 132/45; PULSE 86; RESP 20; TEMP 36; O2SAT 96
[2023-06-20] MEDS: FERROUS SULFATE 325 MG TABLET DR PO (17:32)
[2023-06-20] MEDS: ASPIRIN 81 MG CHEWABLE TABLET PO (20:14)
[2023-06-20] MEDS: CLOPIDOGREL BISULFATE 75 MG TABLET PO (20:14)
[2023-06-20 21:29] VITALS: BP 146/91; PULSE 101; RESP 16; TEMP 36.9; O2SAT 94
[2023-06-21 01:42] LABS: Appearance Urine Cloudy (Clear); Bacteria Urine 1+ /hpf; Bilirubin Urine Negative (Negative); Blood Urine Non-Hemolyzed Trace (Negative); Color Urine Yellow (Yellow); Glucose Urine UA Negative (Negative); Ketones Urine Negative (Negative); Leukocyte Esterase Ur 3+ LEU/UL (Negative); Nitrate Urine Negative (Negative); Protein Urine Negative (Negative); RBC Urine 0-2 /hpf (0-2); Squamous Epithelial Cell Urine None Seen /hpf (Few); Urobilinogen Urine 0.2 mg/dL (<2.0); WBC Urine >100 /hpf (0-3); pH Urine 5.5 (5.0-9.0)
[2023-06-21 02:02] LABS: Add Urine Microscopic? YES
[2023-06-21] MEDS: oxyCODONE HCL (*CRX) 2.5 MG TAB IR PO ×3 (02:40→20:51)
[2023-06-21 06:00] VITALS: BP 139/55; PULSE 90; RESP 16; TEMP 36.7; O2SAT 93
[2023-06-21 06:58] LABS: Basophils Absolute Auto 0.1 K/mm3 (0.0-0.1); Basophils Percent Auto 0.6 % (0.2-1.2); Eosinophils Absolute Auto 0.1 K/mm3 (0-0.3); Eosinophils Percent Auto 1.1 % (0-4.4); Hematocrit 26.2 % (37.0-47.0); Hemoglobin 8.4 g/dL (12.0-15.0); Immature Granulocyte Absolute 0.04 K/mm3 (0.00-0.031); Immature Granulocyte Percent A 0.5 % (0-0.5); Lymphocytes Absolute Auto 1.03 K/mm3 (0.9-3.2); Lymphocytes Percent Auto 12.8 % (18.3-44.2); Mean Corpuscular HGB Conc 32.1 g/dl (32-36); Mean Corpuscular Hemoglobin 30.9 pg (26-34); Mean Corpuscular Volume 96.3 fl (80-100); Mean Platelet Volume 10.6 fl (7.4-10.4); Monocytes Absolute Auto 0.8 K/mm3 (0.1-0.6); Monocytes Percent Auto 9.5 % (2.6-8.5); Neutrophils Absolute Auto 6.1 K/mm3 (1.3-6.7); Neutrophils Percent Auto 75.5 % (45.5-73.1); Platelet Count Result 157 k/mm3 (150-375); Red Blood Count 2.72 M/mm3 (4.2-5.4); Red Cell Distribution Width 14.5 % (11.5-14.5)
[2023-06-21 07:06] LABS: Alanine Aminotransferase 14 U/L (6-35); Albumin Level 3.4 g/dL (3.5-5.1); Alkaline Phosphatase 63 U/L (38-126); Anion Gap 4 mmol/L (4-12); Aspartate Amino Transferase 24 U/L (14-36); Bilirubin,Total 0.7 mg/dL (0.2-1.3); Blood Urea Nitrogen 22 mg/dL (7-17); Calcium 8.8 mg/dL (8.4-10.2); Carbon Dioxide 28 mmol/L (22-30); Chloride 107 mmol/L (98-107); Estimated CRCL calculation 45 ml/min; Estimated Glomerular Filt Rate > 60; Glucose 111 mg/dL (65-110); Iron 33 ug/dL (37-170); Potassium 4.2 mmol/L (3.4-5.0); Sodium 139 mmol/L (137-145)
[2023-06-21 07:16] LABS: Percent Iron Saturation 13 % (20-50)
[2023-06-21] MEDS: ENOXAPARIN 40 MG/0.4 ML SYRINGE SUB-Q (08:33)
[2023-06-21] MEDS: PRAVASTATIN SODIUM 20 MG TABLET 40 MG PO (08:33)
[2023-06-21] MEDS: FERROUS SULFATE 325 MG TABLET DR PO ×2 (08:34→16:30)
[2023-06-21] MEDS: FLUTICASONE PROPIONATE 0.05% NA SPR 16 GM BTL (*BKC) 1 SPRAY NASAL (08:34)
[2023-06-21] MEDS: PSYLLIUM POWDER PACKET 1 PACKET PO (08:34)
[2023-06-21] MEDS: lisinopriL 20 MG TABLET PO (08:34)
[2023-06-21] MEDS: IRON SUCROSE COMPLEX 500 MG in SODIUM CHLORIDE 0.9% IV 250 ML 79 MG IVPB (10:25)
[2023-06-21 15:00] VITALS: BP 113/55; PULSE 97; RESP 18; TEMP 36.3; O2SAT 96
[2023-06-21] MEDS: cefTRIAXone 2 GM/NS 100 ML 2 GM/100 ML BAG IVPB (15:31)
--- NOTE | 2023-06-21 15:41 | PM.IMPN ---
Progress Note: A&P Assessment and Plan (1) Closed fracture of pubic ramus: Code(s): S32.599A - Other specified fracture of unspecified pubis, initial encounter for closed fracture Status: Acute Assessment and Plan: 06/18/23: - XR pelvis 1: Mildly displaced left superior and inferior pubic rami fractures. 2:?Possible right sacral fracture. Consider correlation with MRI. - ortho consulted, awaiting formal recs. case discussed with ED provider, reported case was likely non-operative and would like patient admitted for PT/OT - SCDs - resume diet and continuing daily ASA and Plavix, no immediate surgical intervention indicated - pain management: Tyl Q6H, morphine 2 mg, oxycodone 2.5 mg - zofran PRN for nausea - monitor labs in AM - CBC and BMP - adding UA given mild elevation in WBC - bowel regimen: docusate/senna prn and Metamucil daily - maintenance fluids: LR 75 mL/hr x1L 06/19/23: Continue pain control Continue PT and OT Orthopedic evaluation ordered 06/20/23: Continue with pain control Continue PT OT Case management working on SNF placement and authorization 06/20: Patient accepted to [facility] SNF but unable to discharge due to dropping hemoglobin and discovery of urinary tract infection. (2) Essential (primary) hypertension: Code(s): I10 - Essential (primary) hypertension Status: Acute Assessment and Plan: 06/18/23: - chronic, currently 144/65 - continue home medications: Lisinopril 20 mg daily - monitor 06/19/23: Blood pressures ranging 123/51 to 144/65 No change to current treatment plan 06/20/23: Blood pressure ranging 111/60 to 159/67 No change to current treatment plan (3) Anemia: Code(s): D64.9 - Anemia, unspecified Status: Acute Assessment and Plan: 06/20/2023: Hemoglobin 9.4 Will check Ferritin, Iron, TIBC, and Vitamin B 12 Started Ferrous sulfate oral 06/20: Initial hemoglobin 12.3 on admission 4 days ago, Hemoglobin 8.4 today. Total iron and % saturation significantly low, ordered IV iron. No signs of acute blood loss though there may be some moderate hidden blood loss due to pelvic fracture. Discontinue Lovenox. Time Spent With Patient Time with patient: Greater than 35 minutes Subjective Date/time seen: 06/21/23 15:41 Interval history: Patient still having can considerable left pelvic pain with mobility, pending SNF discharge. Hemoglobin has been dropping several points over the last few days of admission. No obvious significant bruising/hematoma in the pelvic region on exam today. Patient denies hematuria clear yellow urine noted in suction canister with use of peer wick. No reported melena. Iron studies show significantly low iron and low saturation. IV iron ordered. Additionally, patient has not been on antibiotics for likely urine infection. Ordered Rocephin pending culture. Urine was collected overnight showing 3+ leukocyte esterase greater than 100 white blood cells 1+ urine bacteria. Review of Systems Review of Systems: All systems reviewed & are unremarkable except as noted in HPI and below Exam Narrative: General: In no acute distress, well nourished Head: atraumatic, no encephalopathy Eyes: EOMI, PERRLA, sclera clear ENT: moist mucous membranes, nasal passages clear Neck: supple, no JVD, no adenopathy, trachea midline Cardiac: Normal S1 and S2.murmur noted. No gallops or friction rubs, peripheral pulses intact. Respiratory: Lungs clear to auscultation, no adventitious lung sounds, currently on room air Gastrointestinal: soft, non-distended, non-tender, normoactive bowel sounds. : PureWick in place Extremities: moves upper extremities well, limited range of motion to bilateral lower extremity, no edema, no visible significant bruising Skin: clean, dry, intact. No wounds or lesions. Neuro: Alert and oriented x4, cranial nerves intact, no neuro deficits. Psych: normal mood, normal affect, interactive
[2023-06-21] MEDS: ASPIRIN 81 MG CHEWABLE TABLET PO (20:41)
[2023-06-21] MEDS: CLOPIDOGREL BISULFATE 75 MG TABLET PO (20:41)
[2023-06-21 22:00] VITALS: BP 162/57; PULSE 54; RESP 18; TEMP 36.5; O2SAT 95
[2023-06-22 06:00] VITALS: BP 136/50; PULSE 93; RESP 18; TEMP 37.3; O2SAT 93
[2023-06-22 06:17] LABS: Basophils Absolute Auto 0.1 K/mm3 (0.0-0.1); Basophils Percent Auto 1.1 % (0.2-1.2); Eosinophils Absolute Auto 0.1 K/mm3 (0-0.3); Eosinophils Percent Auto 1.7 % (0-4.4); Immature Granulocyte Absolute 0.08 K/mm3 (0.00-0.031); Lymphocytes Absolute Auto 1.11 K/mm3 (0.9-3.2); Lymphocytes Percent Auto 13.8 % (18.3-44.2); Mean Corpuscular HGB Conc 30.8 g/dl (32-36); Mean Corpuscular Hemoglobin 30.5 pg (26-34); Mean Corpuscular Volume 99.2 fl (80-100); Mean Platelet Volume 10.7 fl (7.4-10.4); Monocytes Absolute Auto 0.8 K/mm3 (0.1-0.6); Monocytes Percent Auto 9.7 % (2.6-8.5); Neutrophils Absolute Auto 5.8 K/mm3 (1.3-6.7); Neutrophils Percent Auto 72.7 % (45.5-73.1); Nucleated Red Blood Cells Perc 0.2 % (0.0-0.2); Platelet Count Result 186 k/mm3 (150-375); Red Blood Count 2.62 M/mm3 (4.2-5.4); Red Cell Distribution Width 14.5 % (11.5-14.5)
[2023-06-22 06:37] LABS: Alanine Aminotransferase 14 U/L (6-35); Albumin Level 3.1 g/dL (3.5-5.1); Alkaline Phosphatase 63 U/L (38-126); Anion Gap 5 mmol/L (4-12); Aspartate Amino Transferase 24 U/L (14-36); Bilirubin,Total 0.7 mg/dL (0.2-1.3); Blood Urea Nitrogen 22 mg/dL (7-17); Calcium 8.2 mg/dL (8.4-10.2); Carbon Dioxide 26 mmol/L (22-30); Chloride 103 mmol/L (98-107); Estimated CRCL calculation 36 ml/min; Estimated Glomerular Filt Rate 60; Glucose 100 mg/dL (65-110); Potassium 4.2 mmol/L (3.4-5.0); Sodium 134 mmol/L (137-145)
[2023-06-22] MEDS: lisinopriL 20 MG TABLET PO (08:48)
[2023-06-22] MEDS: PRAVASTATIN SODIUM 20 MG TABLET 40 MG PO (08:48)
[2023-06-22] MEDS: FERROUS SULFATE 325 MG TABLET DR PO (08:48)
[2023-06-22] MEDS: FLUTICASONE PROPIONATE 0.05% NA SPR 16 GM BTL (*BKC) 1 SPRAY NASAL (08:49)
[2023-06-22] MEDS: PSYLLIUM POWDER PACKET 1 PACKET PO (08:53)
[2023-06-22] MEDS: IRON SUCROSE COMPLEX 500 MG in SODIUM CHLORIDE 0.9% IV 250 ML 79 MG IVPB (08:57)
[2023-06-22] MEDS: oxyCODONE HCL (*CRX) 2.5 MG TAB IR PO ×2 (09:08→13:10)
--- NOTE | 2023-06-22 10:09 | PCOTNOTE ---
Attempted to see pt for Occupational Therapy treatment. Pt is requesting for therapist to return later due to needing to rest and just got comfortable in bed. Will attempt at a later time today.
--- NOTE | 2023-06-22 10:52 | PM.DS ---
DS: Admitting Diagnosis Discharge Date 06/22/2023 Admitting Diagnosis Closed fracture of pubic ramus, essential hypertension DS: Discharge Diagnosis Discharge Diagnosis (1) Closed fracture of pubic ramus: Code(s): S32.599A - Other specified fracture of unspecified pubis, initial encounter for closed fracture Status: Acute (2) Essential (primary) hypertension: Code(s): I10 - Essential (primary) hypertension Status: Acute (3) Anemia: Code(s): D64.9 - Anemia, unspecified Status: Acute DS: Summary Hospital Course Hospital Course: This is an 82-year-old female patient suffered a mechanical fall ground level landing left side of the with resultant left pelvic ramus fracture. Orthopedics consulted on patient but no operative repair. PT and OT evaluated patient she is having difficulty tolerating therapy due to pain but she is making some progress. Plans were to discharge couple days ago but her hemoglobin dropped pretty significantly. No signs of bleeding suspect she has hidden loss from pelvic fracture. We also discovered that patient had urinalysis consistent with urinary tract infection. She was treated with IV Rocephin. Iron% saturation was low and total iron count was bit low here soon patient stated IV iron. Today she is stable for discharge to rehab. Urine culture was negative. Status at Discharge Cognitive/behavioral status at discharge: Awake alert oriented Functional status at discharge: uses cane/walker Overall status at discharge: patient is not back to baseline Time Spent with Patient Time attestation: Total time spent providing and/or coordinating discharge services: 35 minutes Time spent: Greater than 30 minutes Exam Narrative: General: In no acute distress, well nourished Head: atraumatic, no encephalopathy Eyes: EOMI, PERRLA, sclera clear ENT: moist mucous membranes, nasal passages clear Neck: supple, no JVD, no adenopathy, trachea midline Cardiac: Normal S1 and S2.murmur noted. No gallops or friction rubs, peripheral pulses intact. Respiratory: Lungs clear to auscultation, no adventitious lung sounds, currently on room air Gastrointestinal: soft, non-distended, non-tender, normoactive bowel sounds. : PureWick in place Extremities: moves upper extremities well, limited range of motion to bilateral lower extremity, no edema, no visible significant bruising Skin: clean, dry, intact. No wounds or lesions. Neuro: Alert and oriented x4, cranial nerves intact, no neuro deficits. Psych: normal mood, normal affect, interactive DS: Data Data Completed and Pending Completed studies during hospitalization: Pelvis x-ray, chest x-ray, head CT Labs on day of discharge: Labs from last 24 hours 06/22/23 05:51 WBC 8.0 RBC 2.62 L Hgb 8.0 L Hct 26.0 L MCV 99.2 MCH 30.5 MCHC 30.8 L RDW 14.5 Plt Count 186 MPV 10.7 H Immature Gran % (Auto) 1.0 H Neut % (Auto) 72.7 Lymph % (Auto) 13.8 L [place] % (Auto) 9.7 H Eos % (Auto) 1.7 Baso % (Auto) 1.1 Lymph # (Auto) 1.11 [place] # (Auto) 0.8 H Eos # (Auto) 0.1 Baso # (Auto) 0.1 Abs Immat Gran (auto) 0.08 H Absolute Neuts (auto) 5.8 Absolute Nucleated RBC 0.020 H Nucleated RBC % 0.2 Sodium 134 L Potassium 4.2 Chloride 103 Carbon Dioxide 26 Anion Gap 5 BUN 22 H Creatinine 0.90 Estim Creat Clear Calc 36 Estimated GFR 60 Glucose 100 Calcium 8.2 L Total Bilirubin 0.7 AST 24 ALT 14 Alkaline Phosphatase 63 Total Protein 6.0 L Albumin 3.1 L Discharge Plan Discharge Attending physician on discharge: Eze Velasco Consulting providers: Geovany Solorzano Discharging Clinician: Omar Duggan Anticipated Discharge Date/Time: 06/22/23 14:00 Patient Disposition: SNF Activity: as tolerated Diet: heart healthy Discharge Instructions: Ortho instructions: D/C to SNF/rehab Follow up in 1 month with xrays. Call for [facility]
--- NOTE | 2023-06-22 10:52 | PCPTNOTE ---
Patient refused treatment this session stating she was tired and not able to do therapy at this time. PT will continue to follow per plan of care.
[2023-06-22] MEDS: cefTRIAXone 2 GM/NS 100 ML 2 GM/100 ML BAG IVPB (12:50)
--- NOTE | 2023-06-22 13:07 | PCOTNOTE ---
2nd attempt was made to see pt for Occupational Therapy treatment. Pt refused to participate due to being in too much pain and does not want to move until the pain goes away. Pt is educated on the importance of participation in therapy for independence, however, pt continues to decline.
[2023-06-22 14:00] VITALS: BP 131/44; PULSE 88; RESP 18; TEMP 36.6; O2SAT 95
[2023-06-22 15:38] LABS: SARS-CoV-2 RNA PCR Negative (Negative)
== END 2023-06-22 16:45 | DRG 536 ==
LOC: ANHED 13:37 → ANH3MEDSUR 15:57
PROVIDERS: Nurse Practitioner Acute Care; Student in an Organized Health Care Education/Training Program; Admitting Provider Internal Medicine; Emergency Provider Emergency Medicine; PCP Nurse Practitioner Family; Visit Provider Nurse Practitioner
DX: S32.592A Other specified fracture of left pubis, initial encounter for closed fracture (principal); S32.10XA Unspecified fracture of sacrum, initial encounter for closed fracture; I69.354 Hemiplegia and hemiparesis following cerebral infarction affecting left non-dominant side; N39.0 Urinary tract infection, site not specified; I10 Essential (primary) hypertension; D64.89 Other specified anemias; J45.909 Unspecified asthma, uncomplicated; J31.0 Chronic rhinitis; E78.2 Mixed hyperlipidemia; R26.89 Other abnormalities of gait and mobility; I69.398 Other sequelae of cerebral infarction; W19.XXXA Unspecified fall, initial encounter; Z87.891 Personal history of nicotine dependence; Z11.52 Encounter for screening for COVID-19; Z79.02 Long term (current) use of antithrombotics/antiplatelets; Z79.82 Long term (current) use of aspirin
CPT/HCPCS: 36415; 70450; 71045; 72170; 80048; 80053; 81001; 82607; 82728; 83540; 83550; 84484; 85025; 87086; 87635; 93005; 97110; 97161; 97166; 97530; 97535; 99285; A9270; J0696; J1650; J1756; J7050; J7120

== ENCOUNTER 2023-08-23 12:34 | Outpatient (CLI) | payer OTHER, SELFPAY ==
--- NOTE | ~2023-08-23 | XR_ITS ---
SINGLE AP VIEW PELVIS Ordering provider: CELESTE Gomez History: . S32.599A - Other specified fracture of unspecified pubis,... . Comparison: June 18, 2023 FINDINGS: BONES: Nonhealed fracture in the left pubic bone. Sclerotic changes in the sacrum bilaterally which may indicate healing fracture. HIP JOINT SPACES: Normal. SACROILIAC JOINT SPACES/LUMBAR SPINE: The sacroiliac joint spaces are normal. Mild degenerative mohr es of the visualized lower lumbar spine. PUBIC SYMPHYSIS: Normal. SOFT TISSUES: Normal. IMPRESSION: No acute osseous abnormality pelvis. Nonhealed left pubic bone fracture. Reviewed, dictated and finalized at location A.
== END 2023-08-23 12:35 | disposition home or self-care (01) ==
PROVIDERS: PCP Nurse Practitioner Family; Visit Provider Physician Assistant Surgical
DX: S32.599A Other specified fracture of unspecified pubis, initial encounter for closed fracture (principal); X58.XXXA Exposure to other specified factors, initial encounter
CPT/HCPCS: 72170

== ENCOUNTER 2023-09-20 15:23 | Emergency (ER) | payer OTHER, SELFPAY ==
[2023-09-20] VITALS (32 sets, daily range): BP systolic 170–254; BP diastolic 42–72; PULSE 34–40; RESP 12–22; TEMP 36.8; O2SAT 92–97
--- NOTE | ~2023-09-20 | XR_ITS ---
XR chest 1V portable Ordering provider: Austen Marte MD History: 82 years Female with . low pulse . Comparison: June 18, 2023 FINDINGS: MEDIASTINUM: The cardiac silhouette is slightly enlarged. Prominent both garcia. LUNGS: No effusions or pneumothorax. Minimal bilateral basal opacification suggestive of atelectasis versus pneumonia with underlying fibrotic/emphysematous changes. OTHER: Degenerative changes of the spine. No free air under the diaphragm. IMPRESSION: Bilateral basal atelectasis versus pneumonia. Underlying emphysematous and fibrotic changes. Reviewed, dictated and finalized at location A.
--- NOTE | 2023-09-20 15:27 | ECG_ITS ---
Test Date: 2023-09-20 15:31:50 Measurements Intervals Alfred Rate: 37 P: 0 DE: 0 QRS: -25 QRSD: 112 T: 64 QT: 541 QTc: 430 Interpretive Statements SINUS RHYTHM WITH COMPLETE HEART BLOCK SLOW JUNCTIONAL ESCAPE RHYTHM INTRAVENTRICULAR CONDUCTION DELAY CONSIDER INFERIOR INFARCT, AGE INDETERMINATE BORDERLINE ST-T WAVE ABNORMALITY- ANTEROLAT/HIGH LAT LEADS BASELINE ARTIFACT- I, II, III, AVR, AVL, AVF ABNORMAL ECG No previous ECG available for comparison Electronically Signed On 09-20-2023 15:37:19 CDT by Bob Garcia D.O.
--- NOTE | 2023-09-20 15:58 | ECG_ITS ---
Test Date: 2023-09-20 19:42:28 Measurements Intervals [place] Rate: 37 P: 0 NV: 0 QRS: -7 QRSD: 104 T: 50 QT: 514 QTc: 405 Interpretive Statements SINUS RHYTHM WITH COMPLETE HEART BLOCK SLOW JUNCTIONAL ESCAPE RHYTHM INCOMPLETE RIGHT BUNDLE BRANCH BLOCK INFERIOR INFARCT, AGE INDETERMINATE BORDERLINE ST ABNORMALITY- ANTERIOR LEADS BASELINE WANDER- AVR, AVF, V3-V6 ABNORMAL ECG Compared to ECG 09/20/2023 15:31:50 NO SIGNIFICANT CHANGE Electronically Signed On 09-21-2023 06:15:56 CDT by Bob Garcia D.O.
[2023-09-20 16:15] LABS: Basophils Absolute Auto 0.1 K/mm3 (0.0-0.1); Basophils Percent Auto 0.8 % (0.2-1.2); Eosinophils Absolute Auto 0.1 K/mm3 (0-0.3); Hematocrit 40.2 % (37.0-47.0); Hemoglobin 12.7 g/dL (12.0-15.0); Immature Granulocyte Absolute 0.02 K/mm3 (0.00-0.031); Immature Granulocyte Percent A 0.3 % (0-0.5); Lymphocytes Absolute Auto 1.04 K/mm3 (0.9-3.2); Mean Corpuscular HGB Conc 31.6 g/dl (32-36); Mean Corpuscular Hemoglobin 30.7 pg (26-34); Mean Corpuscular Volume 97.1 fl (80-100); Mean Platelet Volume 10.5 fl (7.4-10.4); Monocytes Absolute Auto 0.6 K/mm3 (0.1-0.6); Monocytes Percent Auto 9.4 % (2.6-8.5); Neutrophils Absolute Auto 4.6 K/mm3 (1.3-6.7); Neutrophils Percent Auto 71.5 % (45.5-73.1); Platelet Count Result 208 k/mm3 (150-375); Red Blood Count 4.14 M/mm3 (4.2-5.4); Red Cell Distribution Width 15.8 % (11.5-14.5); White Blood Count 6.5 K/mm3 (4.5-10.0)
[2023-09-20 16:19] LABS: Prothrombin Time 13.5 Seconds (11.1-14.7)
[2023-09-20 16:22] LABS: Alanine Aminotransferase 11 U/L (6-35); Albumin Level 3.9 g/dL (3.5-5.1); Alkaline Phosphatase 147 U/L (38-126); Anion Gap 11 mmol/L (4-12); Aspartate Amino Transferase 21 U/L (14-36); Bilirubin,Total 0.6 mg/dL (0.2-1.3); Blood Urea Nitrogen 17 mg/dL (7-17); Calcium 9.1 mg/dL (8.4-10.2); Carbon Dioxide 28 mmol/L (22-30); Chloride 101 mmol/L (98-107); Estimated CRCL calculation 45 ml/min; Estimated Glomerular Filt Rate > 60; Glucose 102 mg/dL (65-110); Lipase 75 U/L (23-300); Potassium 3.8 mmol/L (3.4-5.0); Sodium 140 mmol/L (137-145)
[2023-09-20 16:37] LABS: Troponin I 0.036 ng/mL (0.000-0.034)
[2023-09-20] MEDS: hydrALAZINE HCL 20 MG/ML VIAL 10 MG IV PUSH (17:01)
--- NOTE | 2023-09-20 17:56 | ED.WEAKNESS ---
HPI - Weakness General Chief complaint: Recheck/Abnormal Lab/Rx Stated complaint: low pulse Time Seen by Provider: 09/20/23 15:56 History of Present Illness HPI Narrative: This is an 82-year-old female with a past medical history significant for hypertension, hyperlipidemia and a previous CVA with some residual left-sided deficits. Today patient presents at the request of her primary care provider who referred her to the ED after a routine physical exam was noted to have significant bradycardia without symptoms. Patient states she had a regular visit today for generalized weakness that she has been dealing with for several months since her recent procedure for pubic rami fractures. Patient endorses no chest pain, dyspnea, nausea, vomiting, headache, vision changes, new weakness or fatigue. No dark stools or urinary complaints. Patient states she was not going to proceed to the ED if she was not instructed to immediately go via ambulance. Patient has no known history of coronary disease or any cardiac pathology. She does not see a technical documentation specialist. Patient takes lisinopril for hypertension but no calcium or beta blockers according to her knowledge. 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 History of completed stroke (01/2011) Hx of skin cancer, basal cell L nare, s/p excision Left hemiplegia s/p CVA Mixed hyperlipidemia Rhinitis, chronic Surgical History Surgical History History of bilateral cataract extraction History of surgical removal of pilonidal cyst Family History Family History Father Family history of cardiovascular disease Mother Family history of lung cancer Social History Social History Smoking packs per day: 0.5 Smoking cigarettes per day: 10.0 Years smoked: 20 Smoking pack-years: 10.00 Smoking status: Former smoker Tobacco type: cigarettes Second hand tobacco smoke exposure: Yes Smoking end date: 02/28/84 Alcohol intake: never Drinks per week: 2 Substance use: never Substance use type: does not use Do You Feel Safe in your Home?: Yes Lack of Transportation: No Lack of Food: Never True Current Housing: I Have Housing Concerned About Future Housing: No Difficulty Paying Gas/Electric Bills: No Difficulty Paying for Meds: No Currently Unemployed: No Education: Decline to Answer Difficulty w/ Childcare or Family Care: No Living arrangements: with family Spiritual care concerns: No Exam Narrative: GENERAL: [Well-appearing, well-nourished, and in no acute distress.] HEAD: [Normocephalic, atraumatic.] EYES: [PERRLA and EOMI.] ENT: Nares clear, no rhinorrhea or epistaxis. Mucous membranes moist. NECK: Supple. CHEST: [Clear to auscultation. No respiratory distress.] HEART: Irregular rate and rhythm, bradycardic. No murmur heard. [Normal peripheral pulses.] ABDOMEN: [Soft, nondistended], [nontender], [No rigidity or guarding] EXTREMITIES: Normal range of motion. 1+ bilateral pitting edema symmetric SKIN: Warm, dry, no rash. NEURO: [No focal deficits]. Alert and oriented [x3.] PSYCH: [Normal mood and affect.] Course Vital Signs Vital signs: Vital Signs Temperature 36.8
[2023-09-20 20:13] LABS: Troponin I 0.038 ng/mL (0.000-0.034)
--- NOTE | 2023-09-20 20:53 | PC.NURSE ---
Ishan with [facility] transfer center called for triage information. She states pt has been accepted at [facility] and is awaiting bed assignment.
--- NOTE | 2023-09-20 21:56 | PC.NURSE ---
Sangeeta at [facility] called for report from [phone]. Admit to ICU 21
[2023-09-20 22:36] LABS: Troponin I 0.041 ng/mL (0.000-0.034)
[2023-09-21 00:53] VITALS: BP 193/47; PULSE 37; RESP 18; O2SAT 98
== END 2023-09-21 01:41 | disposition short-term general hospital (02) ==
PROVIDERS: Emergency Provider Student in an Organized Health Care Education/Training Program; PCP Nurse Practitioner Family
DX: R00.1 Bradycardia, unspecified (principal); I44.2 Atrioventricular block, complete; I10 Essential (primary) hypertension; I69.998 Other sequelae following unspecified cerebrovascular disease; I69.954 Hemiplegia and hemiparesis following unspecified cerebrovascular disease affecting left non-dominant side; R26.89 Other abnormalities of gait and mobility; E78.2 Mixed hyperlipidemia; J45.909 Unspecified asthma, uncomplicated; Z98.42 Cataract extraction status, left eye; Z98.41 Cataract extraction status, right eye; Z87.891 Personal history of nicotine dependence; Z85.828 Personal history of other malignant neoplasm of skin; Z79.82 Long term (current) use of aspirin; Z79.899 Other long term (current) drug therapy; I45.10 Unspecified right bundle-branch block; R94.31 Abnormal electrocardiogram [ECG] [EKG]
CPT/HCPCS: 36415; 71045; 80053; 83690; 84484; 85025; 85610; 85730; 93005; 96374; 99285; J0360

== ENCOUNTER 2023-12-14 20:30 | Emergency (ER) | payer OTHER, SELFPAY ==
--- NOTE | 2023-12-14 20:44 | ED.CPR ---
HPI - CPR General Chief Complaint: Cardiac Arrest/CPR Stated Complaint: CARDIAC ARREST Time Seen by Provider: 12/14/23 20:42 History of Present Illness HPI narrative: patient is an 84-year-old female who presents the ER in cardiac arrest. Patient had a fall with fracture of her left humerus last night. Was discharged from [facility] ER this morning. Went home and had been resting. Apparently patient had decreased respirations and decreased responsiveness about 20 minutes prior to EMS being called. Patient was in cardiac arrest at 1950. She was in V-tach, then VFib, then V-tach x3. She was shocked each time. She received IV amiodarone. She also received epinephrine. Patient had eye gel in place and was being bagged on arrival. EMS suction 450 mL of emesis from the airway and oropharynx. 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 History of completed stroke (01/2011) Hx of skin cancer, basal cell L nare, s/p excision Left hemiplegia s/p CVA Mixed hyperlipidemia Rhinitis, chronic Surgical History Surgical History History of bilateral cataract extraction History of surgical removal of pilonidal cyst Family History Family History Father Family history of cardiovascular disease Mother Family history of lung cancer Social History Social History (Updated 10/31/23 @ 13:32 by Melita Gonzalez CMA) Smoking packs per day: 0.5 Smoking cigarettes per day: 10.0 Years smoked: 20 Smoking pack-years: 10.00 Smoking status: Former smoker Tobacco type: cigarettes Second hand tobacco smoke exposure: Yes Smoking end date: 02/28/84 Alcohol intake: never Drinks per week: 2 Substance use: never Substance use type: does not use Do You Feel Safe in your Home?: Yes Lack of Transportation: No Lack of Food: Never True Current Housing: I Have Housing Concerned About Future Housing: No Difficulty Paying Gas/Electric Bills: No Difficulty Paying for Meds: No Currently Unemployed: No Education: Decline to Answer Difficulty w/ Childcare or Family Care: No Living arrangements: with family Occupation/Education: retired Gender identity (if verbalized by the patient): Female Sexual Orientation (if Verbalized by the Patient): Straight or Heterosexual Spiritual care concerns: No Agree to blood products: Yes Exam Narrative: GENERAL: Chronically ill-appearing and unresponsive.. HEAD: Normocephalic, atraumatic. EYES: Pupils fixed and dilated. ENT: Mucous membranes moist. CHEST: Coarse breath sounds with bagging. No spontaneous respiration. HEART: Strong central pulses with CPR but no audible or palpable cardiac activity without it. ABDOMEN: Soft, nontender, nondistended. EXTREMITIES: No spontaneous movements. SKIN: pale, dry, bruising left upper extremity at site of presumed fracture. NEURO: GCS 3 Course Course Emergency Course: See ER nurse code sheet. Patient with low blood sugar given 1 amp D50. Bicarb also given in addition to multiple rounds of epinephrine and. Family at bedside and patient pronounced as at 8:42 p.m. in asystole. Vital Signs Vital signs: Vital Signs Oxygen Delivery Mechanical Ventilation
[2023-12-15 15:47] LABS: Glucose Point of Care 48 mg/dl (65-105)
[2023-12-15 15:48] LABS: Glucose Point of Care 60 mg/dl (65-105)
== END 2023-12-14 20:42 | disposition expired ==
LOC: ANHED 20:53
PROVIDERS: Emergency Provider Emergency Medicine; PCP Nurse Practitioner Family
DX: I46.9 Cardiac arrest, cause unspecified (principal); I10 Essential (primary) hypertension; I69.354 Hemiplegia and hemiparesis following cerebral infarction affecting left non-dominant side; E78.2 Mixed hyperlipidemia; J45.909 Unspecified asthma, uncomplicated; Z87.891 Personal history of nicotine dependence; Z85.828 Personal history of other malignant neoplasm of skin; Z79.82 Long term (current) use of aspirin; Z79.02 Long term (current) use of antithrombotics/antiplatelets; Z79.899 Other long term (current) drug therapy
CPT/HCPCS: 31500; 82948; 92950; 96374; 96375; 99285; J0171